=== PATIENT | female | born 1970 ===

== ENCOUNTER 2021-12-16 05:55 | Day surgery (SDC) | payer OTHER ==
[~2021-12-16] VITALS: Ht 160 cm; Wt 136.1 kg
[~2021-12-16 05:55] MED LIST: LOSARTAN-HCTZ1 EAC2 PO; SYNTHROID175 MCG PO; TOPROL XL100 M1 PO
== END 2021-12-16 12:15 | disposition home or self-care (01) ==
LOC: CIR.AMB 05:55
PROVIDERS: ATTEND Obstetrics & Gynecology
DX: N72 Inflammatory disease of cervix uteri (principal); I10 Essential (primary) hypertension; Z99.89 Dependence on other enabling machines and devices; G47.33 Obstructive sleep apnea (adult) (pediatric); E03.9 Hypothyroidism, unspecified; Z20.822 Contact with and (suspected) exposure to COVID-19